=== PATIENT | female | born 2005 | race Caucasian/White ===

== ENCOUNTER 2024-03-22 06:33 | Outpatient (REF) | payer BC, SELFPAY ==
--- NOTE | ~2024-03-22 | US_ITS ---
EXAMINATION: US PELVIS CLINICAL INFORMATION: Missing IUD string. IUD placed 02/10/2024. COMPARISON: None available. TECHNIQUE: Ultrasound of the pelvis is performed using both transabdominal and transvaginal transducers along with Doppler. Transvaginal imaging is performed due to inadequate visualization transabdominally. FINDINGS: Uterus: The uterus is anteverted, anteflexed, and measures 6.7 x 2.8 x 4.8 cm. Cervix is normal in sonographic appearance. The double wall endometrial thickness is 2 mm. IUD is in place in good position. The uterus is smooth in contour and has normal myometrial echogenicity. No visible fibroid. Adnexa: Both ovaries are visualized. There is normal color flow to the adnexa. There is no ovarian torsion. There is no pelvic ascites or fluid collection. There are no adnexal masses. Right ovary measures 4.0 x 2.8 x 2.6 cm. Volume = 15.0 mL. There is a simple follicular cyst measuring 3.2 x 2.2 x 1.9 cm. Left ovary measures 2.6 x 1.3 x 1.6 cm. Volume = 2.9 mL. It is sonographically normal. US/US pelvic and transvaginal IMPRESSION: 1. Normal endometrium with well-positioned IUD. 2. Simple follicular cyst right ovary measuring 3.2 cm. Electronically signed by: Liam Ryan MD 03/22/2024 02:13 PM [facility] [place]
== END 2024-03-22 06:34 | disposition home or self-care (01) ==
LOC: HO.UMASIMG 06:33
PROVIDERS: Visit Provider Nurse Practitioner Women's Health
DX: Z30.431 Encounter for routine checking of intrauterine contraceptive device (principal); T83.32XA Displacement of intrauterine contraceptive device, initial encounter
CPT/HCPCS: 76830; 76856

== ENCOUNTER → 2024-03-22 12:54 | Outpatient (BNV) | payer BC, SELFPAY | PROVIDERS: Visit Provider Radiology Diagnostic Radiology | DX: N83.01 Follicular cyst of right ovary (principal); Z97.5 Presence of (intrauterine) contraceptive device | CPT/HCPCS: 76830; 76856 ==